=== PATIENT | female | born 1970 | race Caucasian/White ===

== ENCOUNTER 2016-11-15 09:18 | Emergency (ER) | payer OTHER ==
[~2016-11-15] VITALS: Ht 157.5 cm; Wt 75.0 kg
[2016-11-15 09:39] VITALS: BP 134/95; PULSE 95; RESP 15; TEMP 98.8; O2SAT 99
[2016-11-15] MEDS ORDERED: IBUP200T2 PO (09:48)
[2016-11-15] MEDS ORDERED: birth control (09:49)
[2016-11-15] MEDS ORDERED: PENI500T PO (10:34)
--- NOTE | 2016-11-15 10:35 | PD ---
HPI Chief Complaint: ENT Complaint Time Seen by Provider: 10:31 Travel History International Travel<30 days: No Contact w/Intl Traveler<30days: No Traveled to known affect area: No History of Present Illness HPI 46-year-old female presents to the emergency department for evaluation of sore throat that radiates to the left ear as well as intermittent low-grade fevers. Patient states symptoms started on Tuesday, 2 days ago. She reports history of strep throat. Patient denies any cough or congestion. She has no chronic medical problems. She only takes control. She denies any street has pain or shortness breath. No abdominal pain. No nausea or vomiting. She denies any chance of . She has no known allergies. PFSH Past Medical History ?: Not LMP: 10/2016 Social History Alcohol Use: No Tobacco Use: No Substance Use: No Allergies-Medications (Allergen,Severity, Reaction): Coded Allergies: No Known Allergies (Unverified , 11/15/16) Reported Meds & Prescriptions Reported Meds & Active Scripts Active Reported [ control] DAILY Ibuprofen 200 Mg Tab 200 Mg PO Q4H PRN Review of Systems Except as stated in HPI: all other systems reviewed are Neg Physical Exam Narrative GENERAL: Well-developed well-nourished female patient, ambulatory. Afebrile. SKIN: Warm and dry. HEAD: Normocephalic. Atraumatic. ENT: Mucosa pink and moist. Bilateral tonsils and uvula are erythematous. No uvular edema. No uvular, palatal, or tonsillar deviation. Airway patent. Nasal turbinates appear normal without nasal blood, purulent drainage or septal hematoma. Bilateral tympanic membranes are clear without erythema or perforation. EYES: No scleral icterus. No injection or drainage. NECK: Supple, trachea midline. No JVD or lymphadenopathy. CARDIOVASCULAR: Regular rate and rhythm without murmurs, gallops, or rubs. RESPIRATORY: Breath sounds equal bilaterally. No accessory muscle use. Lungs sounds are clear to auscultation. GASTROINTESTINAL: Abdomen soft, non-tender, nondistended. MUSCULOSKELETAL: No cyanosis, or edema. BACK: Nontender without obvious deformity. No CVA tenderness. Data Data Last Documented VS Vital Signs Date Time Temp Pulse Resp B/P Pulse Ox O2 Delivery O2 Flow Rate FiO2 11/15/16 09:39 98.8 95 15 134/95 99 MDM Medical Decision Making Medical Screen Exam Complete: Yes Emergency Medical Condition: Yes Medical Record Reviewed: Yes Differential Diagnosis Strep pharyngitis versus viral pharyngitis versus viral URI versus uvulitis Narrative Course 46-year-old female presents to the emergency department for evaluation of sore throat that radiates to the left ear with low-grade fevers. She denies any other symptoms. Patient will be discharged prescription for pen VK. She is encouraged to continue ibuprofen and Tylenol [id number] as needed. She' ll be given a note for work. She is also instructed to do warm salt water gargles. Patient is agreeable to this plan. The patient was discharged in stable condition with instructions, including return instructions and follow up instructions. Diagnosis Primary Impression: Pharyngitis Qualified Code: J02.9 - Pharyngitis, unspecified etiology Referrals: Primary Care Physician call for appointment Patient Instructions: General Instructions, Pharyngitis (ED) Departure Forms: Tests/Procedures, Work Release Enter return to work date: Nov 17, 2016 Additional Instructions: Take antibiotic as directed until gone. This is free at [facility]. Do warm salt water gargles. [id number] Tylenol every 4 hours as needed. [id number] ibuprofen every 6-8 hours as needed. Follow-up with your primary care physician. Return to the emergency department for any acute worsening of symptoms. Med/Other Pt SpecificInfo: Prescription(s) given Scripts Penicillin V Potassium 500 Mg [id number] Mg PO Q8H 10 Days Ref 0 Prov:Milly Cai 11/15/16 Disposition: 01 DISCHARGE HOME Condition: Stable Milly Cai Nov 15, 2016 10:35
[2016-11-15] MEDS ORDERED: ACETAMINOPHEN 325 MG TAB PO ONE (10:45)
== END 2016-11-15 10:51 | disposition home or self-care (01) ==
LOC: NEPB 09:18
DX: J02.9 Acute pharyngitis, unspecified (principal); R50.9 Fever, unspecified
CPT/HCPCS: 99282

== ENCOUNTER 2016-11-24 12:53 | Emergency (ER) | payer OTHER ==
[~2016-11-24] VITALS: Ht 157.5 cm; Wt 74.0 kg
[~2016-11-24 12:53] MED LIST: IBUP200T2 PO; PENI500T PO; birth control
[2016-11-24 12:55] VITALS: BP 128/63; PULSE 108; RESP 20; TEMP 98.3; O2SAT 98
--- NOTE | 2016-11-24 13:52 | PD ---
HPI Chief Complaint: Abdominal Pain Time Seen by Provider: 13:52 Travel History International Travel<30 days: No Contact w/Intl Traveler<30days: No Traveled to known affect area: No History of Present Illness HPI 46-year-old female with no significant medical history presents to emergency department for evaluation of epigastric pain, nausea, and black tarry stools for the last 3 days. Patient states she has felt febrile and chills but is uncertain of definite fever. No history GI bleed. Does not take anticoagulants her daily NSAIDs. Denies any chest or tightness. No difficulty breathing. No vomiting. No other symptoms to report. [facility], [facility] Past Medical History Medical History: Denies Significant Hx ?: Unknown LMP: 11/15/16 Social History Alcohol Use: No Tobacco Use: No Substance Use: No Allergies-Medications (Allergen,Severity, Reaction): Coded Allergies: No Known Allergies (Unverified , 11/24/16) Reported Meds & Prescriptions Reported Meds & Active Scripts Active Reported [ control] DAILY Review of Systems Except as stated in HPI: all other systems reviewed are Neg Physical Exam Narrative GENERAL: Well-nourished female patient, in no acute distress SKIN: Warm and dry. Appears a bit pallor. HEAD: Atraumatic. Normocephalic. EYES: Pupils equal and round. No scleral icterus. No injection or drainage. ENT: No nasal bleeding or discharge. Mucous membranes pink and moist. NECK: Trachea midline. No JVD. CARDIOVASCULAR: Tachycardic rate and rhythm. No murmur appreciated. RESPIRATORY: No accessory muscle use. Clear to auscultation. Breath sounds equal bilaterally. GASTROINTESTINAL: Abdomen soft, nondistended. Epigastric and left upper quadrant tenderness to palpation. No guarding. No rebound tenderness Hepatic and splenic margins not palpable. RECTAL EXAM: No masses or tenderness, stool is brown. MUSCULOSKELETAL: No obvious deformities. No clubbing. No cyanosis. No edema. NEUROLOGICAL: Awake and alert. No obvious cranial nerve deficits. Motor grossly within normal limits. Normal speech. PSYCHIATRIC: Appropriate mood and affect; insight and judgment normal. Data Data Last Documented VS Vital Signs Date Time Temp Pulse Resp B/P Pulse Ox O2 Delivery O2 Flow Rate FiO2 11/24/16 12:55 98.3 108 20 128/63 98 Room Air Orders Complete Blood Count With Diff (11/24/16 13:41) Comprehensive Metabolic Panel (11/24/16 13:41) Lipase (11/24/16 13:41) Prothrombin Time / Inr (Pt) (11/24/16 13:41) Act Partial Throm Time (Ptt) (11/24/16 13:41) Urinalysis - C+S If Indicated (11/24/16 13:41) Type And Screen (11/24/16 13:41) Electrocardiogram (11/24/16 13:41) Labs Laboratory Tests Test 11/24/16 11/24/16 14:20 14:25 White Blood Count 7.4 TH/MM3 Red Blood Count 4.66 MIL/MM3 Hemoglobin 14.0 GM/DL Hematocrit 41.2 % Mean Corpuscular Volume 88.3 FL Mean Corpuscular Hemoglobin 30.1 PG Mean Corpuscular Hemoglobin 34.1 % Concent Red Cell Distribution Width 12.8 % Platelet Count 318 TH/MM3 Mean Platelet Volume 7.0 FL Neutrophils (%) (Auto) 47.3 % Lymphocytes (%) (Auto) 36.1 % Monocytes (%) (Auto) 7.3 % Eosinophils (%) (Auto) 7.9 % Basophils (%) (Auto) 1.4 % Neutrophils # (Auto) 3.5 TH/MM3 Lymphocytes # (Auto) 2.7 TH/MM3 Monocytes # (Auto) 0.5 TH/MM3 Eosinophils # (Auto) 0.6 TH/MM3 Basophils # (Auto) 0.1 TH/MM3 CBC Comment DIFF FINAL Differential Comment Prothrombin Time 11.0 SEC Prothromb Time International 1.0 RATIO Ratio Activated Partial 24.9 SEC Thromboplast Time Sodium Level 139 MEQ/L Potassium Level 3.9 MEQ/L Chloride Level 105 MEQ/L Carbon Dioxide Level 27.4 MEQ/L Anion Gap 7 MEQ/L Blood Urea Nitrogen 6 MG/DL Creatinine 0.91 MG/DL Estimat Glomerular Filtration 67 ML/MIN Rate Random Glucose 79 MG/DL Calcium Level 8.4 MG/DL Total Bilirubin 0.4 MG/DL Aspartate Amino Transf 48 U/L (AST/SGOT) Alanine Aminotransferase 44 U/L (ALT/SGPT) Alkaline Phosphatase 69 U/L Total Protein 7.7 GM/DL Albumin 3.4 GM/DL Lipase 92 U/L Urine Color YELLOW Urine Turbidity HAZY Urine pH 5.5 Urine Specific [place] 1.023 Urine Protein TRACE mg/dL Urine Glucose (UA) NEG mg/dL Urine Ketones NEG mg/dL Urine Occult Blood TRACE Urine Nitrite NEG Urine Bilirubin NEG Urine Urobilinogen LESS THAN 2.0 MG/DL Urine Leukocyte Esterase NEG Urine RBC LESS THAN 1 /hpf Urine WBC 3 /hpf Urine Squamous Epithelial 7 /hpf Cells Urine Mucus FEW /lpf Microscopic Urinalysis Comment CULT NOT INDICATED MDM Medical Decision Making Medical Screen Exam Complete: Yes Emergency Medical Condition: Yes Medical Record Reviewed: Yes Differential Diagnosis GI bleed versus peptic ulcer disease versus gastritis versus pancreatitis versus gastroenteritis Narrative Course 46 year-old female presents to emergency department for evaluation. She is mildly tachycardic. Rectal exam is normal with a brown stool. Workup was initiated in triage. Once a medical bed becomes available, patient will be transferred and care assumed by that provider. [facility] Point of Care Internal Pos. & Neg. Controls: Passed Fecal Specimen Occult Blood: Negative Condition: Stable Jailene Schmidt Nov 24, 2016 13:52
[2016-11-24 14:37] LABS: AUTOMATED NEUTROPHIL # 3.5 TH/MM3 (1.8-7.7); BASOPHIL # 0.1 TH/MM3 (0-0.2); BASOPHIL % 1.4 % (0.0-2.0); EOSINOPHIL # 0.6 TH/MM3 (0-0.4); EOSINOPHIL % 7.9 % (0.0-4.0); HEMATOCRIT 41.2 % (35.0-46.0); HEMO FLAGS DIFF FINAL; LYMPH % 36.1 % (9.0-44.0); LYMPHOCYTE # 2.7 TH/MM3 (1.0-4.8); MEAN CELL VOLUME 88.3 FL (80.0-100.0); MEAN CORPUSCULAR HEMOGLOBIN 30.1 PG (27.0-34.0); MEAN CORPUSCULAR HGB CONC 34.1 % (32.0-36.0); MONO % 7.3 % (0.0-8.0); NEUT % 47.3 % (16.0-70.0); PLATELET COUNT 318 TH/MM3 (150-450); RED BLOOD COUNT 4.66 MIL/MM3 (4.00-5.30); RED CELL DISTRIBUTION WIDTH 12.8 % (11.6-17.2); WHITE BLOOD COUNT 7.4 TH/MM3 (4.0-11.0)
[2016-11-24 14:45] LABS: APTT (PATIENT) 24.9 SEC (24.3-30.1)
[2016-11-24 14:49] LABS: BLOOD, URINE TRACE (NEG); COMMENT (UR) CULT NOT INDICATED; CULTURE IF INDICATED CULT NOT INDICATED; GLUCOSE,URINE NEG (NEG); KETONE, URINE NEG (NEG); MUCUS URINE FEW /lpf (OCC); NITRITE,URINE NEG (NEG); PH, URINE 5.5 (5.0-8.5); SQUAMOUS EPITHELIAL CELL URINE 7 /hpf (0-5); URINE COLOR YELLOW (YELLW/STRAW)
[2016-11-24 14:52] LABS: ANION GAP 7 MEQ/L (5-15); AST (GOT) 48 U/L (15-37); BICARBONATE 27.4 MEQ/L (21.0-32.0); BLOOD UREA NITROGEN 6 MG/DL (7-18); CHLORIDE 105 MEQ/L (98-107); GLOMERULAR FILTRATION RATE 67 ML/MIN (>89); POTASSIUM 3.9 MEQ/L (3.5-5.1); SODIUM (NA) 139 MEQ/L (136-145)
[2016-11-24 14:55] LABS: ALKALINE PHOSPHATASE 69 U/L (45-117); ALT (GPT) 44 U/L (10-53); TOTAL BILIRUBIN ADULT 0.4 MG/DL (0.2-1.0)
[2016-11-24] MEDS ORDERED: SODIUM CHLOR 0.9% 1000 ML INJ 1,000 ML IV SCH (15:29)
[2016-11-24] MEDS ORDERED: SODIUM CHLORIDE 0.9% FLUSH 5 ML FLUSH IVF PRN (15:30)
[2016-11-24] MEDS ORDERED: DICYCLOMINE HCL 10 MG CAP PO ONE (15:30)
[2016-11-24] MEDS ORDERED: ONDANSETRON HCL 4 MG/2 ML VIAL IVP ONE (15:30)
--- NOTE | 2016-11-24 15:35 | PD ---
Physical Exam Time Seen by Provider: 15:30 Narrative 46-year-old female presents to the emergency department for evaluation of black stool and epigastric abdominal pain for 3 days. Patient was initially seen by provider in triage who initiated workup, please see her documentation. Patient states for the past 3 days she's had multiple episodes of black stool and intermittent epigastric crampy pain. States she's also had loss of appetite, nausea and diarrhea. States that she's had subjective fever for the past week. States that she was seen here last week for strep throat and has had the fever since then. States that she's been taking penicillin VK, finished her last dose yesterday. Denies taking any Pepto-Bismol or iron supplementation. Denies any vomiting, chest pain, shortness of breath, dysuria, hematuria. Denies . The only medication she is taking his oral contraceptives. Denies taking any anticoagulation, NSAIDs or steroids. Prior abdominal surgeries include 2 sections. No other complaints. GENERAL: Well-nourished and well-developed pleasant patient in no acute distress who is nontoxic appearing. SKIN: Warm and dry. HEAD: Normocephalic and atraumatic. EYES: No injection, drainage, or hyphema noted. PERRLA. EOMI. ENT: No nasal drainage noted. Oropharynx is clear. NECK: Supple and the trachea is midline. CARDIOVASCULAR: Regular rate and rhythm. RESPIRATORY: Breath sounds are equal bilaterally with no accessory muscle use, wheezing, rhonchi, or crackles. GASTROINTESTINAL: Mild epigastric tenderness to palpation. Abdomen is soft and nondistended. Negative McBurney's point. Negative Yang sign. No rebound tenderness or guarding. MUSCULOSKELETAL: No obvious deformities, swelling, cyanosis, or ecchymosis is present throughout the upper and lower extremities. Patient has full range of motion without any signs of neurovascular compromise. NEUROLOGICAL: Awake, alert, and oriented. Normal speech and gait. Cranial nerves are grossly intact. Data Data Last Documented VS Vital Signs Date Time Temp Pulse Resp B/P Pulse Ox O2 Delivery O2 Flow Rate FiO2 11/24/16 16:20 98 18 111/62 97 Room Air 11/24/16 12:55 98.3 Orders Complete Blood Count With Diff (11/24/16 13:41) Comprehensive Metabolic Panel (11/24/16 13:41) Lipase (11/24/16 13:41) Prothrombin Time / Inr (Pt) (11/24/16 13:41) Act Partial Throm Time (Ptt) (11/24/16 13:41) Urinalysis - C+S If Indicated (11/24/16 13:41) Type And Screen (11/24/16 13:41) Electrocardiogram (11/24/16 13:41) Ondansetron Inj (Zofran Inj) (11/24/16 15:30) Sodium Chlor 0.9% 1000 Ml Inj (Ns 1000 M (11/24/16 15:29) Sodium Chloride 0.9% Flush (Ns Flush) (11/24/16 15:30) Dicyclomine (Bentyl) (11/24/16 15:30) Famotidine Inj (Pepcid Inj) (11/24/16 15:45) Labs Laboratory Tests Test 11/24/16 11/24/16 14:20 14:25 White Blood Count 7.4 TH/MM3 Red Blood Count 4.66 MIL/MM3 Hemoglobin 14.0 GM/DL Hematocrit 41.2 % Mean Corpuscular Volume 88.3 FL Mean Corpuscular Hemoglobin 30.1 PG Mean Corpuscular Hemoglobin 34.1 % Concent Red Cell Distribution Width 12.8 % Platelet Count 318 TH/MM3 Mean Platelet Volume 7.0 FL Neutrophils (%) (Auto) 47.3 % Lymphocytes (%) (Auto) 36.1 % Monocytes (%) (Auto) 7.3 % Eosinophils (%) (Auto) 7.9 % Basophils (%) (Auto) 1.4 % Neutrophils # (Auto) 3.5 TH/MM3 Lymphocytes # (Auto) 2.7 TH/MM3 Monocytes # (Auto) 0.5 TH/MM3 Eosinophils # (Auto) 0.6 TH/MM3 Basophils # (Auto) 0.1 TH/MM3 CBC Comment DIFF FINAL Differential Comment Prothrombin Time 11.0 SEC Prothromb Time International 1.0 RATIO Ratio Activated Partial 24.9 SEC Thromboplast Time Sodium Level 139 MEQ/L Potassium Level 3.9 MEQ/L Chloride Level 105 MEQ/L Carbon Dioxide Level 27.4 MEQ/L Anion Gap 7 MEQ/L Blood Urea Nitrogen 6 MG/DL Creatinine 0.91 MG/DL Estimat Glomerular Filtration 67 ML/MIN Rate Random Glucose 79 MG/DL Calcium Level 8.4 MG/DL Total Bilirubin 0.4 MG/DL Aspartate Amino Transf 48 U/L (AST/SGOT) Alanine Aminotransferase 44 U/L (ALT/SGPT) Alkaline Phosphatase 69 U/L Total Protein 7.7 GM/DL Albumin 3.4 GM/DL Lipase 92 U/L Blood Type A POSITIVE Antibody Screen NEGATIVE Blood Bank Comment Urine Color YELLOW Urine Turbidity HAZY Urine pH 5.5 Urine Specific [place] 1.023 Urine Protein TRACE mg/dL Urine Glucose (UA) NEG mg/dL Urine Ketones NEG mg/dL Urine Occult Blood TRACE Urine Nitrite NEG Urine Bilirubin NEG Urine Urobilinogen LESS THAN 2.0 MG/DL Urine Leukocyte Esterase NEG Urine RBC LESS THAN 1 /hpf Urine WBC 3 /hpf Urine Squamous Epithelial 7 /hpf Cells Urine Mucus FEW /lpf Microscopic Urinalysis Comment CULT NOT INDICATED MDM Medical Record Reviewed: Yes Supervised Visit with YASEMIN: No Differential Diagnosis Adverse medication reaction versus viral syndrome versus gastroenteritis versus GI bleed versus PUD Narrative Course 46-year-old female presents to the emergency department for evaluation of epigastric abdominal pain and black stools. Patient is afebrile, vital signs are stable. She does have epigastric tenderness to palpation but overall her abdominal examination is benign. She appears well overall. A rectal exam and stool guaiac was performed by triage provider which was negative. Labs were also ordered per triage provider. EKG shows normal sinus rhythm with elevations or depressions. CBC is unremarkable. CMP is unremarkable. Lipase is normal. Coags are unremarkable. Urinalysis shows trace occult blood and few mucus. The patient's hemoglobin is within normal limits and her stool is guaiac negative. I suspect that she is having diarrhea and abdominal cramping secondary to antibiotic use or a viral illness. The patient is given IV fluids , Zofran, Pepcid and Bentyl. She'll be discharged with the same. Advised follow-up with her PCP. Discussed signs and symptoms and when to return to the emergency department. Patient verbalizes understanding and agreement with treatment plan. I discussed the case with my attending physician Dr. Roca who is aware of the patients history, physical examination findings, and treatment plan. Diagnosis Primary Impression: Diarrhea Qualified Code: R19.7 - Diarrhea, unspecified type Additional Impression: Epigastric abdominal pain Referrals: Primary Care Physician Patient Instructions: Abdominal Pain (ED), Acute Diarrhea (ED), General Instructions Additional Instruction: Take medications as prescribed. Follow-up with your Primary Care Physician. Return to the ED for any acute worsening of symptoms. Med/Other Pt SpecificInfo: Prescription(s) given Scripts Ranitidine (Zantac)150 Mg [id number] Mg PO BID 10 Days Ref 0 Prov:Valentín Roca MD 11/24/16 Ondansetron (Zofran)4 Mg Tab4 Mg PO Q6HR PRN (NAUSEA OR VOMITING) #10 TAB Ref 0 Prov:Valentín Roca MD 11/24/16 Dicyclomine (Bentyl)10 Mg Cap10 Mg PO TID PRN (Bowel Management) 5 Days Ref 0 Prov:Valentín Roca MD 11/24/16 Disposition: 01 DISCHARGE HOME Condition: Stable Concepcion Anderson Nov 24, 2016 15:35
[2016-11-24] MEDS ORDERED: FAMOTIDINE 20 MG/2 ML VIAL IV PUSH ONE (15:45)
[2016-11-24 15:48] VITALS: BP 127/70; PULSE 104; RESP 18; O2SAT 100
[2016-11-24] MEDS ORDERED: DICY10 PO (16:13)
[2016-11-24] MEDS ORDERED: ZOFR4TAB PO (16:13)
[2016-11-24] MEDS ORDERED: ZANT150T2 PO (16:13)
[2016-11-24 16:20] VITALS: BP 111/62; PULSE 98; RESP 18; O2SAT 97
[2016-11-24 17:19] VITALS: BP 118/59
--- NOTE | 2016-11-24 22:56 | EKG ---
Date Performed: 11/24/2016 Time Performed: 15:32:59 PTAGE: 46 years EKG: Sinus rhythm NORMAL ECG NO PREVIOUS TRACING DOCTOR: Semaj Blackmon Interpretating Date/Time 11/24/2016 22:54:41
== END 2016-11-24 17:50 | disposition home or self-care (01) ==
LOC: NEPA 12:53
DX: R10.13 Epigastric pain (principal); R19.7 Diarrhea, unspecified; R50.9 Fever, unspecified
CPT/HCPCS: 80053; 81001; 83690; 85025; 85610; 85730; 86850; 86900; 86901; 93005; 96374; 96375; 99285; J2405; J7030